=== PATIENT | male | born 1970 | race Caucasian/White ===

== ENCOUNTER → 2018-07-20 | Day surgery (SDC) | payer BC ==
[~2018-07-20] MED LIST: ACETAMINOPHEN 325 MG TAB PO PRN; ASPIRIN 81 MG CHEWABLE TAB PO ONE; ASPIRIN 81 MG CHEWABLE TAB PO SCH; ATROPINE SULFATE 1 MG/10 ML SYR IVP PRN; DIAZEPAM 5 MG TAB ONE; DIAZEPAM 5 MG TAB PO ONE; FAMOTIDINE 20 MG TAB ONE; FAMOTIDINE 20 MG TAB PO ONE; HEPARIN 10,000 UNIT/10 ML MDV (1,000 UNIT/ML) ONE; IOPAMIDOL (ISOVUE-370) 150 ML BTL IV ONE; KETOROLAC 30 MG/1 ML SDV IVP ONE; KETOROLAC 30 MG/1 ML SDV ONE; LIDOCAINE 1% 300 MG/30 ML SDV ONE; MIDAZOLAM 2 MG/2 ML VIAL ONE; NITROGLYCERIN 0.4 MG BTL SL PRN; NS 1,000 ML IV SCH; ONDANSETRON 4 MG/2 ML VIAL IVP PRN; ROSUVASTATIN CALCIUM 10 MG TAB PO SCH; TEMAZEPAM 15 MG CAP PO PRN; VERAPAMIL 5 MG/2 ML VIAL ONE; diphenhydrAMINE 25 MG CAP PO ONE; fentaNYL 100 MCG/2 ML INJ ONE
--- NOTE | 2018-07-20 09:13 | EDPHY ---
HPI/HX/ROS/PE/MDM Narrative: CHIEF COMPLAINT: Chest pain HPI: The patient is a 48-year-old male with no cardiac history. He complains of anterior chest pain has been present for approximately 3 days, primarily constant. He did have some radiation to the left arm. Yesterday he had an EKG done which showed mild T-wave inversions in the inferior leads. This morning he continued to have chest pain and after going up a flight of stairs noted that this chest pain increased dramatically, approximately 2 5/10. He describes the pain as a pressure. Denies shortness of breath. He underwent another EKG and was referred to the ER. REVIEW OF SYSTEMS: Aside from elements discussed in the HPI, a comprehensive 10-point review of systems was reviewed and is negative. PMH: No known coronary disease but significant family history of left main disease. 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 Denies drug abuse. PHYSICAL EXAM: General:Patient is alert, in no acute distress. ENT:Eyes are normal to inspection. ENT inspection normal. Neck: Normal inspection. Full range of motion. Respiratory:No respiratory distress. Breath sounds normal bilaterally. Cardiovascular: Regular rate and rhythm. Strong peripheral pulses. Normal cap refill. Abdomen:The abdomen is nontender to palpation. There are no peritoneal signs. There are normal bowel sounds. Back: Normal to inspection. No tenderness to palpation. Skin: Normal color. No rash. Warm and dry. Extremities: Normal appearance. Full range of motion. Neuro: Oriented x3. Normal motor function. Normal sensory function. ED Course: 0913: Tom from [facility] is at bedside. 0950: The patient has been evaluated by cardiology and an echo performed, which may reveal a subtle wall abnormality. Dr. Beaver plans to take patient to cytogenetics laboratory manager for angiogram. - Data Points Laboratory Results: Laboratory Results 07/20/18 09:24 07/20/18 07/20/18 07/20/18 09:27 09:24 09:24 WBC RBC Hgb Hct MCV MCH MCHC RDW Plt Count MPV Neut % (Auto) Lymph % (Auto) Cooke % (Auto) Eos % (Auto) Baso % (Auto) Nucleat RBC Rel Count Absolute Neuts (auto) Absolute Lymphs (auto) Absolute Monos (auto) Absolute Eos (auto) Absolute Basos (auto) Absolute Nucleated RBC Immature Gran % Immature Gran # PT Pending INR Pending Sodium Pending Potassium Pending Chloride Pending Carbon Dioxide Pending Anion Gap Pending BUN Pending Creatinine Pending Estimated GFR Pending Glucose Pending Calcium Pending POC Troponin I 0.01 ng/mL ng/mL (0.00-0.08) 07/20/18 09:24 WBC 5.41 10^3/uL 10^3/uL (3.80-9.50) RBC 5.99 10^6/uL 10^6/uL (4.40-6.38) Hgb 18.4 g/dL H g/dL (13.7-17.5) Hct 53.4 % H % (40.0-51.0) MCV 89.1 fL fL (81.5-99.8) MCH 30.7 pg pg (27.9-34.1) MCHC 34.5 g/dL g/dL (32.4-36.7) RDW 11.9 % % (11.5-15.2) Plt Count 209 10^3/uL 10^3/uL (150-400) MPV 10.4 fL fL (8.7-11.7) Neut % (Auto) 55.6 % % (39.3-74.2) Lymph % (Auto) 31.1 % % (15.0-45.0) Cooke % (Auto) 9.2 % % (4.5-13.0) Eos % (Auto) 3.5 % % (0.6-7.6) Baso % (Auto) 0.4 % % (0.3-1.7) Nucleat RBC Rel Count 0.0 % % (0.0-0.2) Absolute Neuts (auto) 3.01 10^3/uL 10^3/uL (1.70-6.50) Absolute Lymphs (auto) 1.68 10^3/uL 10^3/uL (1.00-3.00) Absolute Monos (auto) 0.50 10^3/uL 10^3/uL (0.30-0.80) Absolute Eos (auto) 0.19 10^3/uL 10^3/uL (0.03-0.40) Absolute Basos (auto) 0.02 10^3/uL 10^3/uL (0.02-0.10) Absolute Nucleated RBC 0.00 10^3/uL 10^3/uL (0-0.01) Immature Gran % 0.2 % % (0.0-1.1) Immature Gran # 0.01 10^3/uL 10^3/uL (0.00-0.10) PT INR Sodium Potassium Chloride Carbon Dioxide Anion Gap BUN Creatinine Estimated GFR Glucose Calcium POC Troponin I Medications Given: Discontinued Medications Aspirin (Aspirin) 324 mg PO EDNOW ONE Stop: 07/20/18 09:30 Last Admin: 07/20/18 09:31 Dose: 324 mg Nitroglycerin (Nitrostat) 0.4 mg SL Q5M PRN PRN Reason: Chest Pain Last Admin: 07/20/18 09:44 Dose: 0.4 mg Point of Care Test Results: Chemistry 07/20/18 09:27 POC Troponin I 0.01 ng/mL ng/mL (0.00-0.08) General Time Seen by Provider: 07/20/18 09:07 Initial Vital Signs: Initial Vital Signs Temperature (C) 36.6 C 07/20/18 09:02 Heart Rate 62 07/20/18 09:02 Respiratory Rate 16 07/20/18 09:02 Blood Pressure 150/103 H 07/20/18 09:02 O2 Sat (%) 96 07/20/18 09:02 O2 Delivery Mode Room Air Allergies/Adverse Reactions: No Known Allergies Allergy (Unverified 07/20/18 09:04) Home Medications: Medication Instructions Recorded NK [No Known Home Meds] 07/20/18 Departure - Departure Disposition: To OP Cath/Surgery Clinical Impression: Chest pain Condition: Fair Referrals: NONE *PRIMARY CARE P,. [Primary Care Provider] - As per Instructions
[2018-07-20] MEDS: NITROGLYCERIN 0.4 MG BTL SL PRN ×3 (09:17→09:44)
[2018-07-20 09:36] LABS: PLATELET COUNT 209 10^3/uL (150-400)
[2018-07-20 09:52] LABS: INR 0.94 (0.83-1.16); PROTIME(PATIENT) 12.2 SEC (12.0-15.0)
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
--- NOTE | 2018-07-20 11:32 | ECHO ---
[email or web address] [address] [address] Main: [phone] Echocardiography Examination Transthoracic Name: NASIM CORNELL MR#: [id number] Study Date: 07/20/2018 Study Time: 09:21 AM Date of : 1970 Age: 47 year(s) Height: 185.4 cm (73 in.) Weight: 99.79 kg (220 lb.) BSA: 2.24 m2 Gender: Male Examination: Echo Contrast: Image Quality: Adequate Rhythm: Heart Rate: 70 bpm BP: / Indication: Chest Pain Procedure Staff Referring Physician: Pillowcase Cleaner: Josep Canela RDCS Reading Physician: Je Nicolas MD Requesting Provider: Ordering Physician: Tom Holt NP Indication: Chest Pain Measurements Chambers AV/MV Label Value Normal Value Label Value Normal Value EF lower range (%) 65 % AV PGmax 5 mmHg EF upper range (%) 70 % AV PGmean 3 mmHg IVSd, 2D 1 cm (0.6cm - 1.1cm) AV Vmax 1.16 m/s LVDd, 2D 5.2 cm (4.2cm - 5.9cm) DAVIAN (continuity eq. 2.2 cm2 LVDs, 2D 3.2 cm (2.1cm - 4cm) Vmax) LVEF, 2D 66 % (54% - 74%) DAVIAN D (continuity eq. 2.3 cm2 LVOT PGmax 2 mmHg VTI) LVOT PGmean 1 mmHg MV A Vmax 0.67 m/s LVOT Vmax 0.75 m/s (0.7m/s - 1.1m/s) MV E Vmax 0.46 m/s LVOT Vmean 0.47 m/s MV E/A 0.69 LVOTd 2.1 cm (1.9cm - 2.1cm) TV/PV LVPWd, 2D 1 cm (0.6cm - 1cm) Label Value Normal Value RVDd, 2D 2.8 cm (1.9cm - 3.8cm) RA Pressure 5 mmHg TAPSE 1.8 cm RVSP 25 mmHg Additional Vessels TR Pmax 20 mmHg Label Value Normal Value TR Vmax 2.25 m/s AoRoot, MM 3.3 cm (2.2cm - 3.7cm) PV PGmax 4 mmHg PV Vmax, Caliper 1.03 m/s (0.6m/s - 0.9m/s) Patient: NASIM CRONELL Study Date: 07/20/2018 Page 1 of 2 09:21 AM Conclusions Left Ventricle: This is a emergent echo to eval wall motion in the ER. . Overall Conclusions: No pericardial effusion. Ejection fraction 66%. No clear regional wall motion abnormalities. No significant valvular abnormalities by Doppler 2 dimensional study. Findings Left Ventricle: This is a emergent echo to eval wall motion in the ER. . Left ventricle is normal in size. The EF is visually estimated to be 65 %. EF range is estimated at 65 % - 70 %. Left ventricle wall thickness is normal. Left ventricular diastolic function parameters are normal. No LV hypertrophy. Right Ventricle: Normal size right ventricle. Right ventricular systolic function is normal. Left Atrium: The left atrium is normal in size. Right Atrium: The right atrium is normal in size. Mitral Valve: Mitral valve appears structurally normal. No mitral regurgitation. Aortic Valve: No aortic valve regurgitation. There is no aortic stenosis. Aortic leaflets exhibit no calcification. The aortic valve is trileaflet. Tricuspid Valve: Tricuspid valve leaflets are normal in appearance and function. Trivial tricuspid regurgitation. Right Ventricular systolic pressure is measured at 25 mmHg. Pulmonary artery pressure normal. Pulmonic Valve: Pulmonic leaflets are normal in appearance and function. Aorta: The aorta is normal. The aortic root size in M-mode measures 3.3 cm. Aorta Measurements AoRoot, MM is 3.3 cm. Pericardium: No pericardial effusion. Exam Details Procedure Ordered: Echo Procedure Status: Routine study Image Quality: Adequate Facility Location: Cardiac Echo 1 (No Signature Object) Patient: NASIM CORNELL Study Date: 07/20/2018 Page 2 of 2 09:21 AM [id number]
--- NOTE | 2018-07-20 12:17 | CPEKG ---
Test Reason : OPEN Blood Pressure : / mmHG Vent. Rate : 060 BPM Atrial Rate : 060 BPM P-R Int : 237 ms QRS Dur : 095 ms QT Int : 391 ms P-R-T Axes : 013 -24 -02 degrees QTc Int : 391 ms Sinus rhythm Prolonged CA interval Borderline left axis deviation ST elev, probable normal early repol pattern Confirmed by Wan Weinstein ([id number]) on 07/20/2018 12:17:26 PM Referred By: Wna Weinstein Confirmed By:Wan Weinstein
--- NOTE | 2018-07-20 12:20 | PDPROPOC ---
Sedation Plan of Care Sedation Plan of Care: vital signs stable, mental status noted, patient educated of risks, benefits, alternatives, patient can tolerate sedation ASA Classification: ASA 3 Planned drugs: fentanyl, midazolam Mallampati Score: Class 2 Mallampati Reference Image: Patient passed 3-3-2 rule?: Yes
--- NOTE | 2018-07-20 12:20 | PDHPUP ---
History & Physical Update H&P update statement: This history and physical update is based on an assessment of the patient which was completed after admission or registration (within 24 hours), but prior to the surgery/procedure. H&P update: H&P reviewed & patient examined, no change in patient's condition since H&P completed
[2018-07-20 16:56] VITALS: BP 111/86
--- NOTE | 2018-07-20 18:50 | CPIP ---
[f rep st] INVASIVE CARDIAC PROCEDURE DATE OF PROCEDURE: 07/20/2018 PROCEDURE PERFORMED: 1. Selective coronary angiography. 2. Left heart catheterization. 3. Left ventriculogram. 4. TR band arteriotomy repair. This was a left radial approach. COMPLICATIONS: None. BUZZSAW OPERATOR: Eddie Beaver MD INDICATIONS/OPERATIVE USE CRITERIA: The patient is a 47-year-old man with a history of hypercholeste rolemia and a significant family history of coronary artery disease, specifically, his mother and diane watersal grandfather both had severe left main disease. His mother required bypass surgery at age 52, wh ich of coursed is very young for that type of operation. He has had a previous heart scan, which was negative for significant calcific coronary disease, and at that time, his [place] physician took him o ff his statin medication as he did not have evidence of calcific atherosclerosis at that time. Over t he last several days, he has experienced chest pressure and tightness, which radiated into the inner aspect of his left arm. It has been associated with breathlessness and a sensation of worsening chest pressure and tightness with walking up stairs this morning. He was evaluated in the emergency depart ment with subtle and nonspecific changes on his EKG, but certainly what appeared to be hyperacute T-w ave with T-waves in V2 and V3 that were greater than 5 mm, symmetrical and tall, potentially consiste nt with an early injury pattern. These EKG changes were new compared to an EKG done a day ago. For th is reason and the fact that he has CCS class 4 angina, he was taken the cathode builder for definitive asses sment of his coronary circulation. PROCEDURE IN DETAIL: After informed consent was obtained, n.p.o. status was confirmed, the region of the left wrist was cleaned, prepped, and draped in sterile fashion. A plethysmography and trace assi sted Durga's test was performed documenting dual arterial supply to the left index finger. The patien t then underwent the previously mentioned diagnostic procedure with use of JL4 and R4 curved coronary catheters, as well as a 6-Syriac pigtail catheter. Standard wire exchange technique was utilized for all catheter exchanges. The right coronary artery is 4.5 to 5 mm in size proximally, is dominant giving rise to posterior rhina cending and posterolateral ventricular branch. No flow-limiting obstruction, dissection, or thrombus is identified on evaluation of this blood vessel. The left main coronary lumen is approximately 8 mm in size and is free of flow-limiting obstruction. It bifurcates into an LAD and circumflex system. Th e circumflex is 3.5 mm in size, giving rise to important obtuse marginal branch, all of which are gómez e of flow-limiting obstruction, dissection, or thrombus. The LAD gives rise to a very early and small diagonal branch initially, followed by second branch of approximately 2 mm in size. The third diagon al is the largest and just proximal to that, there is some dye streaming within the LAD and hang up o f dye after the dye had cleared from the remainder of the blood vessel, which is sometimes seen with ruptured endothelium or ruptured plaque. This was only seen in 1 or 2 views. Overall, there is JESSICA-3 flow throughout the left and right coronary systems. The patient underwent left heart catheterization demonstrating elevated left ventricular end-diastoli c pressure measured at 16 mmHg. The patient underwent left ventriculogram in the BATEMAN projection demon strating preserved and hypercontractile left ventricular systolic function. Ejection fraction 65% to 70%. There was there were no segmental wall motion abnormalities. There was mild mitral regurgitation with extrasystoles and pressurized injection in the left ventricle. This does not appear to be consi stent with significant mitral valve pathology. Patient tolerated the procedure well without immediate complication and appears to be a good candidate for discharge. The patient's cholesterol was elevated with a total of 235, triglycerides 244, HDL 37, and LDL of 149 with a non-HDL cholesterol of 198. Ideally would like to have the non-HDL cholesterol in patients wi th coronary disease to be less than 100. Although he does not have evidence of coronary disease on an giography, he does have a family history of the same, and I think he should be treated to reduce his non-HDL cholesterol. We have implemented 10 of rosuvastatin daily and I would like for him to take as pirin 81 mg p.o. daily indefinitely because of his family history alone. I do think we should follow up with lipids and liver enzymes in 6 to 8 weeks to ensure that the rosuvastatin is not causing a pro blem with liver dysfunction or chemical hepatitis. As usual, he knows to report promptly to the emerg ency department should he experience chest discomfort, pressure, tightness, fainting, near fainting, or other clinical symptoms of concern. I have asked that he avoid strenuous exercise for the next 7 t o 10 days to allow for his wrist to heal appropriately and to avoid lifting with his nondominant hand more than 20 pounds, which would be equivalent to 2-1/2 gallons of milk until the risks is fully hea led up. The patient understands these instructions, willing to comply with them. He will be discharge d on aspirin 81 mg daily and rosuvastatin 10 mg daily with plan for followup as noted. Copy requested to: Primary care physician /[id number]/MODL
== END | disposition home or self-care (01) ==
LOC: FCATH 11:13
PROVIDERS: ATTEND Internal Medicine Cardiovascular Disease
DX: R07.9 Chest pain, unspecified (principal); E78.5 Hyperlipidemia, unspecified; Z82.49 Family history of ischemic heart disease and other diseases of the circulatory system
CPT/HCPCS: 84484-ER; 96374; J1644; J1885; J2250; J3010; Q9967